=== PATIENT | female | born 1945 | race Caucasian/White ===

== ENCOUNTER → 2017-11-17 | Outpatient (CLI) | payer MEDICARE, OTHER ==
[~2017-11-17] MED LIST: FUROSEMIDE INJ 10 MG/ML 4 ML VIAL ONE
--- NOTE | 2017-11-17 19:22 | Diagnostic Imaging Report ---
Renal Scan with Lasix [place] Clinical information: 72 F with right renal cyst, hydronephrosis, recent UTI Technique: Following intravenous administration of 10 mCi of Tc-99m MAG3, dynamic images of the kidneys in the posterior projection were obtained through 40 minutes. Lasix 40 mg was administered intravenously at 10 minutes post injection of the tracer. Report: Left kidney: Perfusion of the left kidney is prompt. The kidney has a reniform shape. It is slightly decreased in size. Extraction of tracer from the blood pool is normal. Clearance of tracer from the renal parenchyma is prompt. The pelvicalyceal system is not dilated. Increased pooling of tracer is seen in the renal pelvis. Drainage of tracer from the pelvicalyceal system is prompt and adequate prior to administration of Lasix. No significant stasis of tracer is seen within the left ureter. Right kidney: Perfusion to the right kidney is prompt. 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 The kidney is decreased in size and is smaller than the left kidney. Extraction of tracer by the renal parenchyma is normal. Clearance of tracer from the renal parenchyma is prompt. The pelvicalyceal system is not dilated. Increased pooling of tracer is seen in the renal pelvis. Drainage of tracer from the pelvicalyceal system is prompt and adequate prior to administration of Lasix. No significant stasis of tracer is seen within the right ureter. Differential renal function: The left kidney contributes 57% of total renal function and the right kidney contributes 43% (normal 43-57%). Impression: 1. The function of the left kidney is generally normal. No hydronephrosis is present. No physiologically significant obstruction of the renal collecting system is present. 2. The right kidney is narrowed and smaller than the left kidney. This accounts for the differential function of 43%.. No hydronephrosis is present. No physiologically significant obstruction of the renal collecting system is present. Signed by: Dr. Yessenia Powell M.D. on 11/17/2017 7:18 PM
== END | disposition home or self-care (01) ==
LOC: NM 10:48
PROVIDERS: ATTEND Urology
DX: N28.1 Cyst of kidney, acquired (principal)
CPT/HCPCS: 78708; A9562; J1940